=== PATIENT | male | born 1975 | race Caucasian/White ===

== ENCOUNTER → 2016-06-29 | Outpatient (CLI) | payer BC ==
--- NOTE | 2016-06-30 11:02 | XR ---
Lumbosacral spine HISTORY: Sciatica, Low back pain 5 views of the lumbosacral spine No comparisons Lumbar vertebral bodies show preserved height, alignment, and bone mineralization. No evident spondyl olysis at the upper lumbar levels. Disc spaces are remarkable for loss of disc height especially at L 4-5, L5-S1 with associated spondylosis. Sclerosis present in the posterior elements of the lumbar spi ne. Minimal anterolisthesis grade 1 L5-S1. Question lucency in the posterior elements of L5. IMPRESSION: Degenerative disc disease. Difficult to exclude spondylolysis at L5. Lumbar MRI may be of benefit.
== END | disposition home or self-care (01) ==
LOC: RADXRYALE 14:33
PROVIDERS: ATTEND Internal Medicine
DX: M51.37 Other intervertebral disc degeneration, lumbosacral region (principal); M54.30 Sciatica, unspecified side
CPT/HCPCS: 72110

== ENCOUNTER → 2019-12-04 | Outpatient (CLI) | payer BC ==
--- NOTE | 2019-12-04 20:43 | XR ---
EXAMINATION TYPE: XR lumbosacral spine min 4V DATE OF EXAM: 12/04/2019 CLINICAL HISTORY: Left-sided sciatica. Pain in left lower back and down left leg. No known injury. TECHNIQUE: Frontal, lateral, and oblique images of the lumbar spine are obtained. COMPARISON: Lumbar radiograph 06/29/2016 FINDINGS: There are 5 lumbar type vertebral bodies identified. The lumbar spine shows satisfactory alignment without evidence of acute fracture or dislocation. Vertebral body heights are within normal limits. There is mild disc space narrowing at L4-5 and L5-S1. Facet arthropathy of the inferior lumb ar spine bilaterally. The overlying soft tissue appears unremarkable. IMPRESSION: 1. No acute fracture or dislocation is seen in the lumbar spine. 2. Degenerative disc disease and facet arthropathy.
== END | disposition home or self-care (01) ==
LOC: RADXRYALE 14:30
PROVIDERS: ATTEND Internal Medicine
DX: M51.17 Intervertebral disc disorders with radiculopathy, lumbosacral region (principal); M47.27 Other spondylosis with radiculopathy, lumbosacral region
CPT/HCPCS: 72110

== ENCOUNTER 2021-01-07 23:40 | Emergency (ER) | payer BC ==
[2021-01-07 23:46] VITALS: TEMP 98.2
[2021-01-08] MEDS ORDERED: SODIUM CHLORIDE 0.9% 500 ML 500 ML IV STA
--- NOTE | 2021-01-08 00:23 | XR ---
EXAMINATION TYPE: XR chest 2V DATE OF EXAM: 01/08/2021 COMPARISON: 01/07/2015 HISTORY: Chest pain TECHNIQUE: 2 views FINDINGS: Heart and mediastinum are normal. Lungs are clear. Diaphragm is normal. Bony thorax appears normal. IMPRESSION: Normal chest. No change.
[2021-01-08 00:47] LABS: Basophils # (A) 0.1 k/uL (0-0.2); Basophils % (A) 0 %; Eosinophils # (A) 0.3 k/uL (0-0.7); Eosinophils % (A) 2 %; HCT 43.7 % (39.0-53.0); Lymphocytes % (A) 12 %; MCH 32.3 pg (25.0-35.0); MCHC 34.3 g/dL (31.0-37.0); Mean Platelet Volume 7.4; Monocytes # (A) 0.9 k/uL (0-1.0); Monocytes % (A) 5 %; Neutrophils # (A) 13.8 k/uL (1.3-7.7); Neutrophils % (A) 80 %; Platelet Count 406 k/uL (150-450); RBC 4.65 m/uL (4.30-5.90); WBC 17.3 k/uL (3.8-10.6)
[2021-01-08 00:54] LABS: ALT 21 U/L (4-49); AST 24 U/L (17-59); African American GFR (CKD) >90 (>60 ml/min/1.73 sqM); Alkaline Phosphatase 101 U/L (38-126); Amylase 42 U/L (30-110); Anion Gap 11 mmol/L; Blood Urea Nitrogen 16 mg/dL (9-20); Calcium 9.6 mg/dL (8.4-10.2); Carbon Dioxide 22 mmol/L (22-30); Chloride 104 mmol/L (98-107); Glucose 118 mg/dL (74-99); Lipase 365 U/L (23-300); Magnesium 2.1 mg/dL (1.6-2.3); Non-African American GFR(CKD) 87 (>60 ml/min/1.73 sqM); Sodium 137 mmol/L (137-145); Total Bilirubin 0.7 mg/dL (0.2-1.3)
[2021-01-08 00:59] LABS: INR 1.1 (<1.2); Partial Thromboplastin Time 23.5 sec (22.0-30.0); Prothrombin Time 11.2 sec (9.0-12.0)
[2021-01-08 01:05] VITALS: RESP 18
--- NOTE | 2021-01-08 01:15 | ED ---
Chest Pain HPI - General Chief Complaint: Chest Pain Stated Complaint: joint pain, abd pain Time Seen by Provider: 01/07/21 23:51 Source: patient Mode of arrival: ambulatory Limitations: no limitations - History of Present Illness Initial Comments: This patient is 45-year-old man presenting with constellation of symptoms that are been going on for number days. The patient has had sore throat, body aches and joint pains, hot and cold sensation, and chest pains. He admitted in [place] when he developed initially a sore throat. The patient was seen at a clinic there and started on an antibiotic and had taken 4 days of that, then changed to what appears to be Bactrim. Patient has noted little improvement in the sore throat, but had subsequently developed body and joint aches. He has also been having chest pain. He did come back from [place] to be seen by his physician, who also advised him to be seen in the emergency department. The patient did fly recently but not having any symptoms of DVT. He is not having calf or leg pain. No dyspnea, hemoptysis. He does have some chest pain but it is not pleuritic and it is not localized. No leg swelling. MD Complaint: chest pain Onset/Timin -: week(s) Onset: during rest Pain Location: left chest, right chest Pain Radiation: none Severity: mild Quality: aching Consistency: constant Improves With: nothing Worsens With: nothing - Related Data Previous Rx's Medication Instructions Recorded Ibuprofen 800 mg PO TID #20 tablet 01/08/21 Allergies Allergy/AdvReac Type Severity Reaction Status Date / Time No Known Allergies Allergy Verified 01/07/21 23:46 Review of Systems ROS Statement: Those systems with pertinent positive or pertinent negative responses have been documented in the HPI. ROS Other: All systems not noted in ROS Statement are negative. Constitutional: Reports: fever (Objective) ENT: Reports: throat pain. Denies: ear pain, hearing loss, congestion Respiratory: Denies: cough, dyspnea, wheezes, hemoptysis Cardiovascular: Reports: chest pain. Denies: palpitations, orthopnea, edema, syncope Gastrointestinal: Denies: abdominal pain, nausea, vomiting, diarrhea, constipation Genitourinary: Denies: dysuria, hematuria, testicular pain, testicular mass Musculoskeletal: Reports: arthralgia, myalgia Skin: Reports: rash Neurological: Reports: headache. Denies: weakness, numbness, paresthesias, confusion EKG Findings - EKG Comments: EKG Findings:: possible old septal infarct. - EKG Results: EKG: interpreted by RACHAEL, sinus rhythm (rate 88 bpm), normal ST/T (normal) - [place], [place], Hypertrophy, ST Abn: QRS axis and voltage: right axis deviation (+90 to +180) Past Medical History Past Medical History: Hypertension History of Any Multi-Drug Resistant Organisms: None Reported Past Surgical History: Appendectomy Past Psychological History: No Psychological Hx Reported Smoking Status: Current every day smoker Past Alcohol Use History: Occasional Past Drug Use History: None Reported General Exam Limitations: no limitations General appearance: alert, in no apparent distress Head exam: Present: atraumatic, normocephalic Eye exam: Present: normal appearance. Absent: scleral icterus, conjunctival injection ENT exam: Present: mucous membranes moist, TM's normal bilaterally, other ('s there is some mild erythema on the pharynx, no exudate) Neck exam: Present: normal inspection, full ROM, lymphadenopathy. Absent: tenderness, meningismus Respiratory exam: Present: normal lung sounds bilaterally, chest wall tenderness. Absent: respiratory distress, wheezes, rales, rhonchi, stridor, a ccessory muscle use, decreased breath sounds Cardiovascular Exam: Present: regular rate, normal rhythm, normal heart sounds. Absent: systolic murmur, diastolic murmur, rubs, gallop GI/Abdominal exam: Present: soft. Absent: distended, tenderness, guarding, rebound, rigid, mass, pulsatile mass, hernia Extremities exam: Present: normal inspection, normal capillary refill. Absent: pedal edema, calf tenderness Back exam: Present: normal inspection. Absent: CVA tenderness (R), CVA tenderness (L) Neurological exam: Present: alert, oriented X3, CN II-XII intact Skin exam: Present: warm, dry, intact. Absent: normal color Course Vital Signs 01/07/21 01/08/21 01/08/21 23:41 00:03 05:36 Temperature 98.2 F Pulse Rate 90 82 77 Respiratory 20 18 18 Rate Blood Pressure 176/101 145/95 129/74 O2 Sat by Pulse 99 99 98 Oximetry Chest Pain [facility] Patient is 45-year-old man with constellation of symptoms are most suggestive of viral syndrome. Given the recent travel, he is worked up for possibility of pulmonary embolism causing his chest discomfort and this is negative by the computed tomography scan. The patient did have antibiotic therapy and also possibility of a partially treated strep versus a viral syndrome also considered. Strep culture is pending. The other labs for common viral infections currently negative. Discussed appropriate further care and follow-up as well as close following with his primary physician and return parameters Disposition Clinical Impression: Viral syndrome Disposition: HOME SELF-CARE Condition: Good Instructions (If sedation given, give patient instructions): Viral Syndrome (ED) Prescriptions: Ibuprofen 800 mg PO TID #20 tablet Is patient prescribed a controlled substance at d/c from ED?: No Referrals: Corinne John MD [Primary Care Provider] - 1-2 days
[2021-01-08 01:33] LABS: Erythrocyte Sedimentation Rate 80 mm/hr (0-15)
--- NOTE | 2021-01-08 03:56 | CT ---
EXAMINATION TYPE: CT chest angio for PE DATE OF EXAM: 01/08/2021 COMPARISON: None HISTORY: R/O PE Chest pain CT DLP: 515.4 mGycm Automated exposure control for dose reduction was used. CONTRAST: Performed with IV Contrast, patient injected with 80 mL of Isovue 370. There are 3-D post processed images. The lungs are clear of infiltrate. There is no evidence of a pulmonary mass. There is no pleural effu loretta. Heart size is normal. There is no pericardial effusion. There are no hilar masses. There is no mediastinal adenopathy. Thoracic aorta is intact. There is no aneurysm or dissection. There is normal contrast opacification of the pulmonary arteries. There are no filling defects. Thoracic spine is intact. Sternum is intact. IMPRESSION: Negative exam. No evidence of pulmonary embolism. No suspicious pulmonary mass.
[2021-01-08] MEDS ORDERED: KETOROLAC 15 MG/ML 1 ML VIAL IVP STA (05:00)
[2021-01-08 05:38] VITALS: BP 129/74; PULSE 77
== END 2021-01-08 05:38 | disposition home or self-care (01) ==
LOC: EC 23:40
DX: B34.9 Viral infection, unspecified (principal); I10 Essential (primary) hypertension; F17.200 Nicotine dependence, unspecified, uncomplicated; Z90.49 Acquired absence of other specified parts of digestive tract
CPT/HCPCS: 99285; 96360; 36415; 93005; 85379; 80053; 85652; 82150; 83690; 83735; 84484; 85025; 85610; 85730; 86308; 87081; 87430; 87635; 71046; 71275; Q9967